=== PATIENT | female | born 1985 | race Caucasian/White ===

== ENCOUNTER 2022-12-07 16:50 | Emergency (ER) | payer BC, MEDICAID ==
[~2022-12-07] VITALS: Ht 165.1 cm; Wt 75.0 kg
[2022-12-07] MEDS ORDERED: ONDANSETRON HCL 4 MG/2 ML VIAL IV ONE ×2 (18:00)
[2022-12-07] MEDS ORDERED: MORPHINE SULFATE 4 MG/ML SYR/VIAL IV ONE ×2 (18:15→20:30)
[2022-12-07] MEDS ORDERED: PERCOT PO (20:26)
[2022-12-07 21:23] VITALS: BP 144/101
== END 2022-12-07 21:29 | disposition home or self-care (01) ==
LOC: ER 16:50 → EDBD 16:50 → ER 21:18
DX: S82.141A Displaced bicondylar fracture of right tibia, initial encounter for closed fracture (principal); W13.8XXA Fall from, out of or through other building or structure, initial encounter; Y93.89 Activity, other specified; Y92.89 Other specified places as the place of occurrence of the external cause; Y99.8 Other external cause status
CPT/HCPCS: 29505; 73562; 73700; 96374; 96375; 96376; 99285; J2270; J2405